=== PATIENT | female | born 1935 | race Caucasian/White ===

== ENCOUNTER 2016-12-28 07:18 | Day surgery (SDC) | payer MEDICARE, BC ==
[2016-12-28] MEDS ORDERED: ACETAZOLAMIDE 250 MG PO ONE (07:40)
[2016-12-28] MEDS: PROPARACAINE HCL 0.5% OPHTHALMIC SOL ONE ×3 (07:51→09:17)
[2016-12-28] MEDS: PHENYLEPHRINE HCL 10% OPHTHAL SOL ONE ×2 (07:52→08:05)
[2016-12-28] MEDS: CYCLOPENTOLATE 1% SOL ONE ×2 (07:52→08:05)
[2016-12-28] MEDS: KETOROLAC 0.5% OPTH 60 DROP SOL ONE ×2 (07:52→08:05)
[2016-12-28 08:00] VITALS: O2SAT 95
[2016-12-28] MEDS ORDERED: MIDAZOLAM 2 MG/2 ML SOL ONE (08:48)
[2016-12-28] MEDS ORDERED: FENTANYL 100MCG/2ML SOL ONE (08:48)
[2016-12-28] MEDS ORDERED: LIDOCAINE HCL 1% MPF SOL ONE (09:12)
[2016-12-28] MEDS ORDERED: POVIDONE IODINE 5% SOL ONE (09:12)
[2016-12-28] MEDS ORDERED: BSS 500 ML 500 ML IR ONE (09:12)
== END 2016-12-28 10:28 | disposition home or self-care (01) | DRG 125 ==
LOC: SURG 07:18
PROVIDERS: ATTEND Ophthalmology
DX: H25.9 Unspecified age-related cataract (principal)
CPT/HCPCS: J2250; J3010; J2001

== ENCOUNTER 2017-01-25 08:05 | Day surgery (SDC) | payer MEDICARE, BC ==
[2017-01-25] MEDS ORDERED: ACETAZOLAMIDE 500 MG CER ONE (08:16)
[2017-01-25] MEDS: PROPARACAINE HCL 0.5% OPHTHALMIC SOL ONE ×3 (09:00→10:00)
[2017-01-25] MEDS: PHENYLEPHRINE HCL 10% OPHTHAL SOL ONE ×2 (09:00→09:14)
[2017-01-25] MEDS: KETOROLAC 0.5% OPTH 60 DROP SOL ONE ×2 (09:01→09:14)
[2017-01-25] MEDS: CYCLOPENTOLATE 1% SOL ONE ×2 (09:01→09:14)
[2017-01-25] MEDS ORDERED: MIDAZOLAM 2 MG/2 ML SOL ONE (09:05)
[2017-01-25] MEDS ORDERED: BSS 500 ML 500 ML IR ONE (09:54)
[2017-01-25] MEDS ORDERED: LIDOCAINE HCL 1% MPF SOL ONE (09:54)
[2017-01-25] MEDS ORDERED: POVIDONE IODINE 5% SOL ONE (09:54)
[2017-01-25 10:35] VITALS: PULSE 83; RESP 12; TEMP 97.8; O2SAT 93
[2017-01-25 10:49] VITALS: BP 144/96
== END 2017-01-25 11:07 | disposition home or self-care (01) | DRG 125 ==
LOC: SURG 08:05
PROVIDERS: ATTEND Ophthalmology
DX: H25.9 Unspecified age-related cataract (principal)
CPT/HCPCS: J2250; J2001